=== PATIENT | female | born 1985 | race Caucasian/White ===

== ENCOUNTER 2017-03-08 16:15 | Outpatient (CLI) | payer MEDICAID ==
[2015-12-12 17:50] VITALS: BP 94/57
== END 2017-03-08 16:16 ==
LOC: LABRHC 16:15
PROVIDERS: ATTEND Family Medicine
DX: Z12.4 Encounter for screening for malignant neoplasm of cervix (principal)
CPT/HCPCS: 88148; G0143

== ENCOUNTER 2017-04-10 09:27 | Outpatient (CLI) | payer MEDICAID ==
[2015-12-12 17:50] VITALS: BP 94/57
== END 2017-04-10 09:30 ==
LOC: OUT 09:27
PROVIDERS: ATTEND General Practice
DX: N94.10 Unspecified dyspareunia (principal); N94.6 Dysmenorrhea, unspecified; N80.9 Endometriosis, unspecified
CPT/HCPCS: 99203